=== PATIENT | female | born 1970 | race African-American/Black ===

== ENCOUNTER 2023-10-13 11:09 | Inpatient (IN) ==
[2023-10-13] MEDS: NS 1,000 ML IV 1,000 ML ONE (12:55)
[2023-10-13 12:57] LABS: BASOPHILS # (AUTO) 0.1 X10^3/uL (0.0-0.1); EOSINOPHILS # (AUTO) 0.1 x10^3/uL (0.0-0.2); EOSINOPHILS % (AUTO) 1.4 % (0.9-2.9); HEMATOCRIT 41.8 % (36.0-47.0); HEMOGLOBIN 13.9 g/dL (12.0-16.0); LYMPHOCYTES # (AUTO) 1.8 X10^3/uL (1.3-2.9); LYMPHOCYTES % (AUTO) 19.1 % (21.0-51.0); MEAN CORPUSCULAR HEMOGLOBIN 28.5 pg (27.0-34.0); MEAN CORPUSCULAR HGB CONC 33.3 g/dL (33.0-35.0); MEAN CORPUSCULAR VOLUME 85.4 fL (80.0-100.0); MEAN PLATELET VOLUME 9.4 fL (7.4-11.0); MONOCYTES # (AUTO) 0.9 x10^3/uL (0.3-0.8); MONOCYTES % (AUTO) 9.7 % (0.0-13.0); NEUTROPHILS # (AUTO) 6.5 x10^3/uL (2.2-4.8); NEUTROPHILS % (AUTO) 68.8 % (42.0-75.0); PLATELET COUNT 184 X10^3/uL (150.0-450.0); RED CELL DISTRIBUTION WIDTH 13.9 % (11.6-16.5); WHITE BLOOD COUNT 9.5 X10^3/uL (3.6-10.0)
[2023-10-13 12:59] VITALS: BMI 32.7
[2023-10-13] MEDS: NOZIN NASAL SANITIZER TP ONE (13:08)
[2023-10-13 13:10] LABS: ALANINE AMINOTRANSFERASE 12 Units/L (12-78); ALBUMIN 3.8 g/dL (3.4-5.0); ALKALINE PHOSPHATASE 116 Units/L (46-116); ASPARTATE AMINO TRANSFERASE 13 Units/L (15-37); BLOOD UREA NITROGEN 37 mg/dL (7-18); CALCIUM 9.2 mg/dL (8.5-10.1); CARBON DIOXIDE 21.9 mmol/L (21-32); CHLORIDE 101 mmol/L (98-107); CREATININE 3.01 mg/dL (0.55-1.02); GLUCOSE 88 mg/dL (65-99); SODIUM 134 mmol/L (136-145); TOTAL PROTEIN 7.8 g/dL (6.4-8.2); eGFR NON BLACK RACES 17 (>60)
[2023-10-13] MEDS: ZOSYN VIAL 3.375 GRAMS 3.375 G in NS 100 ML IV 100 ML IV SCH (13:15)
[2023-10-13] MEDS: NS 100 ML IV 100 ML ONE (13:15)
[2023-10-13] MEDS: ANCEF VIAL 1 GRAM ONE (13:15)
[2023-10-13] MEDS: DIPRIVAN VIAL 20 ML ONE (13:16)
[2023-10-13] MEDS: PEPCID 20 MG VIAL ONE (13:16)
[2023-10-13] MEDS: FENTANYL VIAL INJ 100 mcg ONE (13:16)
[2023-10-13] MEDS: ZOFRAN INJ 4 MG VIAL ONE (13:16)
[2023-10-13] MEDS: BETADINE SOLN ONE (13:16)
[2023-10-13] MEDS: REGLAN INJ 10 MG VIAL ONE (13:16)
[2023-10-13] MEDS: VERSED ONE (13:16)
[2023-10-13 13:18] LABS: POTASSIUM 5.2 mmol/L (3.5-5.1)
[2023-10-13] MEDS: NEO-SYNEPHRINE INJ ONE (13:27)
[2023-10-13] MEDS: TOBRAMYCIN SULFATE ONE (13:32)
[2023-10-13] MEDS: MARCAINE 0.25% INJ ONE (13:32)
[2023-10-13] MEDS: VANCOMYCIN HCL ONE (13:32)
--- NOTE | 2023-10-13 14:13 | DR.OPNOTE ---
OP NOTE Pre-Op Diagnosis: Cellulitis, Right foot Post-Op Diagnosis: Same as above Procedure Date Date Of Procedure: 10/13/23 Procedure: Incision and drainage to bone on wound 7.8x1.8cm, Right foot Application of antibiotic cement, right foot Application of Wound VAC, right foot Type of Anesthesia: Local Anesthesia Comment: MAC anesthesia with local block Findings: Decent bleeding noted, no purulence or drainage Specimen/Pathology: Cultures EBL: 10cc Drains/Tubes Placed: None Hardware: Antibiotic cement Cultures: 2x from right foot Complications:: None Needle/Sponge Count:: Counted Disposition/Condition: Pt. tolerated procedure without difficulty. Extubated in the OR and taken to PACU in stable condition.
[2023-10-13] MEDS ORDERED: NS IRRIGATION* 500 ML IR ONE (14:28)
[2023-10-13] MEDS: LR 1,000 ML IV 1,000 ML IV SCH (15:00)
[2023-10-13] MEDS: D50W ABBOJECT SYR IV ONE ×2 (16:30→18:24)
--- NOTE | 2023-10-13 17:23 | EKG ---
Test Reason : SURGICAL CLEARANCE Blood Pressure : */* mmHG Vent. Rate : 77 BPM Atrial Rate : 77 BPM P-R Int : 170 ms QRS Dur : 82 ms QT Int : 396 ms P-R-T Axes : 38 18 107 degrees QTc Int : 448 ms Normal sinus rhythm T wave abnormality, consider lateral ischemia Abnormal ECG No previous ECGs available Confirmed by Greg Alex MD ([id number] on 10/14/2023 8:49:26 AM Referred By: Confirmed By: Greg Alex MD
[2023-10-13] MEDS: CIPRO TAB 500 MG PO SCH (20:19)
[2023-10-13] MEDS: DESYREL PO SCH (20:19)
[2023-10-13] MEDS: NEURONTIN CAP 300 MG PO SCH (20:19)
[2023-10-13] MEDS ORDERED: GLUCOPHAGE XR 24-HR PO SCH (21:00)
--- NOTE | 2023-10-14 06:13 | NOTE.SOAP ---
Soap Note Note for Day of Date of Exam: 10/14/23 Subjective Data Subjective Data: Patient is POD1 s/p I&D washout with placement of antibiotic cement and wound VAC. She is doing well, no pain or complaints. No drainage from the VAC machine. She understands what needs to be done to save her foot. Objective Data Objective Data: Dressing c/d/i without strikethrough Neurovascular status intact Assessment Assessment: 53F with a surgical site dehiscence secondary to cellulitis who underwent a washout with placement of abx cement and wound vac to the right foot (DOS:10/12/33) Plan Plan: Patient was seen this am, explained the plan to take patient back to the OR. Pending on how it looks tomorrow, we will likely be taking out all the hardware for a deep washout and application of antibiotic cement spacer with a minirail to maintain length. Patient understands the possibilities for surgery tomorrow. She may need to come back again friday depending on how she looks. CTA pending, will likely be done today if Creatinine goes down (was 3.01 yesterday), we have been hydrating patient. Patient can be PWB with heel touch to the RLE in a surgical shoe. IV antibiotics and cipro on schedule. Pain controlled. Patient will be returning to the operating room tomorrow, NPO after midnight
[2023-10-14 06:26] LABS: BASOPHILS # (AUTO) 0.1 X10^3/uL (0.0-0.1); BASOPHILS % (AUTO) 0.7 % (0.2-1.0); EOSINOPHILS # (AUTO) 0.1 x10^3/uL (0.0-0.2); EOSINOPHILS % (AUTO) 1.7 % (0.9-2.9); HEMATOCRIT 38.6 % (36.0-47.0); HEMOGLOBIN 12.7 g/dL (12.0-16.0); LYMPHOCYTES # (AUTO) 1.7 X10^3/uL (1.3-2.9); LYMPHOCYTES % (AUTO) 22.4 % (21.0-51.0); MEAN CORPUSCULAR HEMOGLOBIN 28.5 pg (27.0-34.0); MEAN CORPUSCULAR VOLUME 86.2 fL (80.0-100.0); MEAN PLATELET VOLUME 9.5 fL (7.4-11.0); MONOCYTES # (AUTO) 0.7 x10^3/uL (0.3-0.8); MONOCYTES % (AUTO) 9.9 % (0.0-13.0); NEUTROPHILS # (AUTO) 4.9 x10^3/uL (2.2-4.8); NEUTROPHILS % (AUTO) 65.3 % (42.0-75.0); PLATELET COUNT 188 X10^3/uL (150.0-450.0); RED BLOOD COUNT 4.48 X10^6/uL (3.5-5.4); RED CELL DISTRIBUTION WIDTH 14.3 % (11.6-16.5); WHITE BLOOD COUNT 7.5 X10^3/uL (3.6-10.0)
[2023-10-14 06:33] LABS: ALANINE AMINOTRANSFERASE 9 Units/L (12-78); ALBUMIN 3.4 g/dL (3.4-5.0); ALKALINE PHOSPHATASE 100 Units/L (46-116); ASPARTATE AMINO TRANSFERASE 9 Units/L (15-37); BLOOD UREA NITROGEN 47 mg/dL (7-18); CALCIUM 8.7 mg/dL (8.5-10.1); CARBON DIOXIDE 20.8 mmol/L (21-32); CHLORIDE 103 mmol/L (98-107); CREATININE 3.74 mg/dL (0.55-1.02); GLUCOSE 56 mg/dL (65-99); POTASSIUM 5.6 mmol/L (3.5-5.1); SODIUM 136 mmol/L (136-145); TOTAL PROTEIN 7.1 g/dL (6.4-8.2); eGFR NON BLACK RACES 14 (>60)
[2023-10-14] MEDS: COZAAR PO SCH (09:39)
[2023-10-14] MEDS: NEURONTIN CAP 300 MG PO SCH (10:05)
[2023-10-14] MEDS: PriLOSEC PO SCH (10:07)
[2023-10-14] MEDS: CIPRO TAB 500 MG PO SCH (10:07)
[2023-10-14] MEDS ORDERED: LR 1,000 ML IV 1,000 ML IV ONE (10:22)
[2023-10-14] MEDS: LR 1,000 ML IV 1,000 ML IV ONE ×2 (11:09→12:01)
[2023-10-14] MEDS: ROXICODONE TAB 5 MG PO PRN (12:00)
[2023-10-14] MEDS: NORVASC TAB 5 MG PO SCH (12:00)
[2023-10-14] MEDS: LR 1,000 ML IV 1,000 ML IV SCH (13:00)
[2023-10-14] MEDS: NS 250 ML IV 250 ML IV ONE (17:11)
[2023-10-14] MEDS: DESYREL PO SCH (20:45)
--- NOTE | 2023-10-15 06:05 | VAS ---
EXAM:LOWER EXT ARTERIALHISTORY:RIGHT FOOT WOUND DEHISENCE; RT FOOT WOUND, CELLULITISCOMPARISON:NoneTECHNIQUE:Multi ple dyer scale and color flow Doppler images of the right and left lower extremity arterial system were obtained.FINDINGS:Triphasic waveforms in the right common femoral, superficial femoral, and popliteal arteries. Monophasic waveforms more distally in the right lower extremity. Predominantly biphasic waveforms throughout the left lower extremity arteries. The dorsalis pedis arteries are not well visualized bilaterally.RIGHT:NETWORK SUPPORT MANAGER: 91SFA Proximal: 109SFA mid: 95SFA distal: 102Popliteal: 83PTA: 92LEFTCFA: 100SFA Proximal: 91SFA mid: 116SFA distal: 103Popliteal: 39PTA: 55Velocities are in cm/secIMPRESSION:No elevated velocities in either lower extremity to suggest hemodynamically significant stenosis.THIS IS AN ELECTRONICALLY VERIFIED FINAL REPORT10/15/2023 6:01 AM - Electronically signed by Jesse Yin MD
[2023-10-15 06:17] LABS: BASOPHILS % (AUTO) 0.6 % (0.2-1.0); EOSINOPHILS # (AUTO) 0.2 x10^3/uL (0.0-0.2); HEMATOCRIT 38.6 % (36.0-47.0); HEMOGLOBIN 12.6 g/dL (12.0-16.0); LYMPHOCYTES # (AUTO) 1.3 X10^3/uL (1.3-2.9); LYMPHOCYTES % (AUTO) 17.5 % (21.0-51.0); MEAN CORPUSCULAR HEMOGLOBIN 28.2 pg (27.0-34.0); MEAN CORPUSCULAR HGB CONC 32.6 g/dL (33.0-35.0); MEAN CORPUSCULAR VOLUME 86.5 fL (80.0-100.0); MEAN PLATELET VOLUME 10.2 fL (7.4-11.0); MONOCYTES # (AUTO) 0.8 x10^3/uL (0.3-0.8); MONOCYTES % (AUTO) 10.6 % (0.0-13.0); NEUTROPHILS % (AUTO) 68.3 % (42.0-75.0); PLATELET COUNT 190 X10^3/uL (150.0-450.0); RED BLOOD COUNT 4.47 X10^6/uL (3.5-5.4); RED CELL DISTRIBUTION WIDTH 14.1 % (11.6-16.5); WHITE BLOOD COUNT 7.3 X10^3/uL (3.6-10.0)
[2023-10-15 06:22] LABS: ALANINE AMINOTRANSFERASE 12 Units/L (12-78); ALBUMIN 3.5 g/dL (3.4-5.0); ALKALINE PHOSPHATASE 103 Units/L (46-116); ASPARTATE AMINO TRANSFERASE 11 Units/L (15-37); BLOOD UREA NITROGEN 28 mg/dL (7-18); CALCIUM 8.5 mg/dL (8.5-10.1); CARBON DIOXIDE 24.9 mmol/L (21-32); CHLORIDE 104 mmol/L (98-107); CREATININE 2.06 mg/dL (0.55-1.02); GLUCOSE 96 mg/dL (65-99); POTASSIUM 4.6 mmol/L (3.5-5.1); SODIUM 138 mmol/L (136-145); TOTAL PROTEIN 7.3 g/dL (6.4-8.2); eGFR NON BLACK RACES 27 (>60)
[2023-10-15 06:53] LABS: PLATELET MORPHOLOGY COMMENT NORMAL (NORMAL)
[2023-10-15] MEDS: TOBRAMYCIN SULFATE ONE (14:07)
[2023-10-15] MEDS: VANCOMYCIN HCL ONE (14:07)
[2023-10-15] MEDS: NS 1,000 ML IV 1,000 ML ONE (14:30)
[2023-10-15] MEDS: FENTANYL VIAL INJ 100 mcg ONE (15:01)
[2023-10-15] MEDS: DIPRIVAN VIAL 20 ML ONE ×2 (15:01→15:34)
[2023-10-15] MEDS: PEPCID 20 MG VIAL ONE (15:01)
[2023-10-15] MEDS: BETADINE SOLN ONE (15:01)
[2023-10-15] MEDS: VERSED ONE (15:01)
[2023-10-15] MEDS: ZOFRAN INJ 4 MG VIAL ONE (15:01)
[2023-10-15] MEDS: KETAMINE 50 MG/5 ML-NACL SYRNG ONE (15:01)
[2023-10-15] MEDS: MARCAINE 0.25% INJ ONE (15:18)
--- NOTE | 2023-10-15 16:09 | DR.OPNOTE ---
OP NOTE Pre-Op Diagnosis: Non healing wound, right foot Post-Op Diagnosis: Same Procedure Date Date Of Procedure: 10/15/23 Procedure: 1. Incision and Drainage with hardware removal, right foot 2. Antibiotic cement exchage 3. Delayed Primary Closure 4. Application of wound vac, right foot Type of Anesthesia: Local Findings: See dictation Specimen/Pathology: Wound culture EBL: 20cc Drains/Tubes Placed: None Drains/Tubes Comment: Wound Vac device Hardware: P28 screw and Cerament G Cultures: None Complications:: None Needle/Sponge Count:: Counted Disposition/Condition: Pt. tolerated procedure without difficulty. Extubated in the OR and taken to PACU in stable condition.
[2023-10-15] MEDS ORDERED: MIRALAX POWDER (1 DOSE 17 G) ONE (19:37)
[2023-10-15] MEDS ORDERED: COLACE CAP 100 MG PO ONE (19:37)
[2023-10-15] MEDS: COLACE CAP 100 MG PO SCH (20:02)
[2023-10-15] MEDS: MIRALAX POWDER (1 DOSE 17 G) PO SCH (20:03)
[2023-10-16 05:46] VITALS: RESP 20
--- NOTE | 2023-10-16 06:24 | NOTE.SOAP ---
Soap Note Note for Day of Date of Exam: 10/16/23 Subjective Data Subjective Data: Patient is POD1 s/p I&D washout with hardware removal and exchange of antibiotic cement and wound VAC. She is doing well, no pain or complaints. No drainage from the VAC machine. She understands what needs to be done to save her foot. Objective Data Objective Data: Dressing c/d/i without strikethrough Neurovascular status intact Assessment Assessment: 53F with a surgical site dehiscence secondary to cellulitis who underwent a washout with placement of abx cement and wound vac to the right foot (DOS:10/13/23 and 10/15/23) Plan Plan: Patient was seen this am, doing well. Explained that her wound is improving and the infection seems to be resolving. She will be continuing with the Wound VAC at home and will require home health. Pain controlled. She is to be NWB to the RLE in a splint with assistive device; rx for knee scooter and bedside commode in her chart. She is okay for discharge once she receives her home VAC and home health set up.
[2023-10-16 06:29] LABS: BASOPHILS # (AUTO) 0.1 X10^3/uL (0.0-0.1); BASOPHILS % (AUTO) 1.2 % (0.2-1.0); EOSINOPHILS # (AUTO) 0.2 x10^3/uL (0.0-0.2); EOSINOPHILS % (AUTO) 3.3 % (0.9-2.9); HEMATOCRIT 37.6 % (36.0-47.0); HEMOGLOBIN 12.5 g/dL (12.0-16.0); LYMPHOCYTES # (AUTO) 1.8 X10^3/uL (1.3-2.9); LYMPHOCYTES % (AUTO) 30.1 % (21.0-51.0); MEAN CORPUSCULAR HEMOGLOBIN 28.6 pg (27.0-34.0); MEAN CORPUSCULAR HGB CONC 33.2 g/dL (33.0-35.0); MEAN CORPUSCULAR VOLUME 86.1 fL (80.0-100.0); MEAN PLATELET VOLUME 9.7 fL (7.4-11.0); MONOCYTES # (AUTO) 0.6 x10^3/uL (0.3-0.8); MONOCYTES % (AUTO) 9.9 % (0.0-13.0); NEUTROPHILS # (AUTO) 3.4 x10^3/uL (2.2-4.8); NEUTROPHILS % (AUTO) 55.5 % (42.0-75.0); PLATELET COUNT 162 X10^3/uL (150.0-450.0); RED BLOOD COUNT 4.37 X10^6/uL (3.5-5.4); RED CELL DISTRIBUTION WIDTH 13.8 % (11.6-16.5); WHITE BLOOD COUNT 6.1 X10^3/uL (3.6-10.0)
[2023-10-16 06:40] LABS: ALANINE AMINOTRANSFERASE 13 Units/L (12-78); ALBUMIN 3.4 g/dL (3.4-5.0); ALKALINE PHOSPHATASE 98 Units/L (46-116); ASPARTATE AMINO TRANSFERASE 11 Units/L (15-37); BLOOD UREA NITROGEN 13 mg/dL (7-18); CARBON DIOXIDE 23.2 mmol/L (21-32); CHLORIDE 106 mmol/L (98-107); CREATININE 1.16 mg/dL (0.55-1.02); GLUCOSE 106 mg/dL (65-99); POTASSIUM 4.8 mmol/L (3.5-5.1); SODIUM 140 mmol/L (136-145); TOTAL PROTEIN 7.1 g/dL (6.4-8.2); eGFR NON BLACK RACES 52 (>60)
[2023-10-16 09:48] VITALS: O2SAT 99
[2023-10-16] MEDS: ZOSYN VIAL 2.25 GRAMS 2.25 G in NS 100 ML IV 100 ML IV SCH (13:45)
[2023-10-16] MEDS ORDERED: ZOSYN IV SCH (14:00)
[2023-10-16] MEDS ORDERED: NS IV SCH (14:00)
[2023-10-16 14:12] VITALS: BP 121/57; PULSE 85; TEMP 98
[2023-10-16] MEDS ORDERED: CIPRO TAB 500 MG PO SCH (21:00)
== END 2023-10-16 06:40 | disposition home health service (06) | DRG 580 ==
LOC: OBS 11:15 → MED/SURG 12:06
PROVIDERS: ADMIT Obstetrics & Gynecology Obstetrics; ATTEND Obstetrics & Gynecology Obstetrics
PROC: HARDREM (ICD-10-PCS; 2023-10-15 17:25)
DX: L03.115 Cellulitis of right lower limb; B96.5 Pseudomonas (aeruginosa) (mallei) (pseudomallei) as the cause of diseases classified elsewhere; T81.30XA Disruption of wound, unspecified, initial encounter; E87.1 Hypo-osmolality and hyponatremia; E87.5 Hyperkalemia; L03.012 Cellulitis of left finger; R26.89 Other abnormalities of gait and mobility